=== PATIENT | male | born 1965 | race Two or more races ===

== ENCOUNTER 2017-01-11 10:53 | Emergency (ER) | payer OTHER ==
[~2017-01-11] VITALS: Ht 177.8 cm; Wt 100.0 kg
[2017-01-11 11:01] VITALS: BP 142/82
[2017-01-11 11:54] LABS: HEMOGLOBIN 16.6 g/dL (13.7-18.0)
[2017-01-11 12:07] LABS: ASPARTATE AMINO TRANSFERASE 25 U/L (15-37); BLOOD UREA NITROGEN 15 mg/dL (7-18)
== END 2017-01-11 12:48 | disposition home or self-care (01) ==
LOC: ED 12:18
DX: B34.9 Viral infection, unspecified (principal); R55 Syncope and collapse
CPT/HCPCS: 36415; 71020; 80053; 85025; 93005; 99285